=== PATIENT | female | born 1945 | race Caucasian/White ===

== ENCOUNTER 2016-06-10 19:53 | Emergency (ER) | payer OTHER, MEDICARE, BC ==
[~2016-06-10 19:53] MED LIST: ALLEGRA180 MG PO; ASPIRIN PO; BABY ASPIRIN81 MG PO; BUTALB-ACETAMI1 EAC1 PO; BUTALBITAL PO; CAFFEINE PO; CALCIUM 600 MG1 EAC2 PO; CALCIUM MAGNESIUM ZI PO; CALCIUM PO; CALCIUM600 MG PO; CEFAZOLIN2000 MG/50 IV; CLARITIN10 M8 PO; CLONAZEPAM0.5 M2 PO; CLONAZEPAM0.5 MG PO; CLONAZEPAM1 MG; DAKIN'S473 M1 MC; DITROPAN XL5 M3 PO; DITROPAN5 MG PO; DOXYCYCLINE HY100 M3 PO; DOXYCYCLINE HY100 M5 PO; FLEXERIL10 MG PO; FLONASE ALLERG9.9 ML; FLONASE16 GM NS; FLOVENT RO50 MCG/DIS IH; FOLIC ACID PO; FOLIC ACID0.4 M1 PO; FORTEO2.4 ML SQ; GABAPENTIN300 M1 PO; GLUCOSAMINE & C1 CAP PO; IRON SUPPLEMEN325 MG PO; IRON325 M2 PO; LACTAID FAS9000 UNIT PO; LEVOTHYROXINE50 MC3 PO; LIPITOR10 MG PO; LISINOPRIL10 M1 PO; LISINOPRIL10 MG PO; MELATONIN 3 MG1 EACH PO; MELATONIN3 MG PO; METHADONE5 MG PO; MULTIPLE VITAM1 EAC3 PO; NIACIN; NIACIN500 M1 PO; OMEGA 3 FISH O1 EACH PO; OMEGA 31 CAP PO; PERCOCET 5/3251 TAB PO; PERCOCET 5MG/AP1 TAB PO; PERCOCET 7.5-31 EAC1 PO; POTASSIUM595 ( 99 ) PO; PRAVACHOL20 M1 PO; PRAVACHOL20 MG PO; PRILOSEC20 MG; PRILOSEC20 MG PO; PROTONIX40 M2 PO; SENNA-S TABLET1 EAC3 PO; ULTRAM50 MG; ULTRAM50 MG PO; VERAPAMIL ER240 M2 PO; VERAPAMIL HCL240 M PO; VITAMIN B121000 MCG SL; VITAMIN B122500 MCG PO; VITAMIN C1000 M1 PO; VITAMIN D1000 UNIT PO; VITAMIN D31000 UNI3 PO; VOLTAREN100 G1 TP; VOLTAREN75 MG; ZYRTEC1010 PO; [UNRECOGNIZED DRUG - OTHER]; [UNRECOGNIZED DRUG - OTHER] PO
[2016-10-14] MEDS ORDERED: MIRALAX17 G2 PO (16:01)
[2016-10-14] MEDS ORDERED: [UNRECOGNIZED DRUG - OTHER] (16:05)
[2016-10-14] MEDS ORDERED: ZYRTEC10 M7 PO (16:28)
[2016-10-14] MEDS ORDERED: *CPAP (16:36)
== END 2016-06-10 22:35 ==
LOC: EDMED 19:53
DX: S16.1XXA Strain of muscle, fascia and tendon at neck level, initial encounter (principal); I25.10 Atherosclerotic heart disease of native coronary artery without angina pectoris; I10 Essential (primary) hypertension; E03.9 Hypothyroidism, unspecified; M41.9 Scoliosis, unspecified; Z79.890 Hormone replacement therapy; Z79.899 Other long term (current) drug therapy; V49.40XA Driver injured in collision with unspecified motor vehicles in traffic accident, initial encounter; Y92.410 Unspecified street and highway as the place of occurrence of the external cause